=== PATIENT | female | born 1990 | race Asian ===

== ENCOUNTER 2023-11-02 20:15 | Emergency (ER) | payer OTHER ==
[~2023-11-02] VITALS: Ht 149.9 cm; Wt 48.1 kg
[2023-11-02 21:16] VITALS: BP 118/83; TEMP 98.4; O2SAT 100
[2023-11-02] MEDS ORDERED: TDAP [DIPH/PERTUSSIS/TET] 0.5 ML VIAL IM ONE ×2 (21:55→22:00)
== END 2023-11-02 22:15 | disposition home or self-care (01) ==
LOC: ER 20:28
DX: S61.252A Open bite of right middle finger without damage to nail, initial encounter (principal); W54.0XXA Bitten by dog, initial encounter; Y93.89 Activity, other specified; Y92.89 Other specified places as the place of occurrence of the external cause; Y99.8 Other external cause status
CPT/HCPCS: 90715